=== PATIENT | male | born 1975 | race Caucasian/White ===

== ENCOUNTER → 2017-04-07 | Outpatient (CLI) | payer MEDICAID ==
[~2017-04-07] MED LIST: ALBU2.5V NPPB; CEFD300C37 PO; CLIN300C93 PO; DOCU100C PO; FENT1PAT76 TP; GADOBUTROL 7.5 MMOL/7.5 ML VIAL ONE; HYDR-3307 PO; IBUP-1222 PO; LORA-446 PO; ONDA8TAB9 PO; OXYC10TA6 PO
== END | disposition home or self-care (01) ==
LOC: CFH 07:08
PROVIDERS: ATTEND Internal Medicine Hematology & Oncology
DX: C11.0 Malignant neoplasm of superior wall of nasopharynx (principal)
CPT/HCPCS: 70543; A9585

== ENCOUNTER → 2018-04-03 | Outpatient (CLI) | payer OTHER ==
[~2018-04-03] MED LIST changes: +CLIN300C8 PO; -CLIN300C93 PO; +DOCU-180 PO; -DOCU100C PO; +GADOBUTROL 7.5 MMOL/7.5 ML PFS ONE; -GADOBUTROL 7.5 MMOL/7.5 ML VIAL ONE
== END | disposition home or self-care (01) ==
LOC: CFH 08:55
PROVIDERS: ATTEND Internal Medicine Hematology & Oncology
DX: C11.0 Malignant neoplasm of superior wall of nasopharynx (principal)
CPT/HCPCS: 70543; A9585